=== PATIENT | male | born 1960 | race Caucasian/White ===

== ENCOUNTER 2019-03-22 08:14 | Outpatient (CLI) | payer OTHER ==
[~2019-03-22] VITALS: Ht 170.2 cm; Wt 113.4 kg
[2019-03-22] VITALS (13 sets, daily range): BP systolic 102–146; BP diastolic 51–78
[2019-03-22] MEDS ORDERED: LIDOCAINE WITH 8.4% SOD BICARB 3 ML DISP.SYRIN. ONE (08:34)
[2019-03-22 08:35] LABS: BASO % 1 % (0-3); EOS # 0.1 x10^3/uL (0.0-0.7); EOS % 1 % (0-3); HEMATOCRIT 45.5 % (39.0-53.0); HEMOGLOBIN 15.4 g/dL (13.0-17.5); LYMPH # 2.3 x10^3/uL (1.0-4.8); LYMPH % 33 % (24-48); MEAN CORPUSCULAR HEMOGLOBIN 29 pg (25-35); MEAN CORPUSCULAR HGB CONC 34 g/dL (31-37); MEAN CORPUSCULAR VOLUME 87 fL (79-100); MONO # 0.4 x10^3/uL (0.0-1.1); MONO % 6 % (0-9); NEUT % 60 % (31-73); PLATELET COUNT 161 x10^3/uL (140-400); RED BLOOD COUNT 5.23 x10^6/uL (4.30-5.70); WHITE BLOOD COUNT 6.8 x10^3/uL (4.0-11.0)
[2019-03-22] MEDS ORDERED: MIRT15TA PO (08:49)
[2019-03-22] MEDS ORDERED: NORT25CA PO (08:49)
[2019-03-22] MEDS ORDERED: INSU100V11 IJ (08:49)
[2019-03-22] MEDS ORDERED: LEVO25TA4 PO (08:49)
[2019-03-22] MEDS ORDERED: METF850T8 PO (08:49)
[2019-03-22] MEDS ORDERED: ATOR20TA58 PO (08:49)
[2019-03-22] MEDS ORDERED: BUSP10TA PO (08:49)
[2019-03-22] MEDS ORDERED: METO25TA4 PO (08:49)
[2019-03-22] MEDS ORDERED: CALC200T3 PO (08:49)
[2019-03-22] MEDS ORDERED: MELO7.5T29 PO (08:49)
[2019-03-22] MEDS ORDERED: TAMS0.4C97 PO (08:49)
[2019-03-22] MEDS ORDERED: DOCU-109 PO (08:49)
[2019-03-22] MEDS ORDERED: NALOXONE 0.4 MG/ML VIAL. ONE (08:53)
[2019-03-22] MEDS ORDERED: FLUMAZENIL 0.5 MG/5 ML VIAL. IV ONE (08:53)
[2019-03-22] MEDS ORDERED: fentaNYL PF VIAL 100 MCG/2 ML VIAL ONE (08:53)
[2019-03-22] MEDS ORDERED: MIDAZOLAM HCL/PF 2 MG/2 ML VIAL. ONE (08:53)
[2019-03-22 08:54] LABS: PROTHROMBIN TIME PATIENT 12.6 SEC (11.7-14.0)
[2019-03-22] MEDS ORDERED: MIDAZOLAM HCL/PF 2 MG/2 ML VIAL. IV ONE (09:00)
[2019-03-22] MEDS ORDERED: LIDOCAINE WITH 8.4% SOD BICARB 3 ML DISP.SYRIN. IJ ONE (09:00)
[2019-03-22] MEDS ORDERED: fentaNYL PF VIAL 100 MCG/2 ML VIAL IV ONE (09:00)
--- NOTE | 2019-03-22 11:50 | NUR ---
discharge notes; Pt was awake, VSS. Ate breakfast w/o any probelm. Bandaid site was clean and dry. Report was given to RN, Renee Mendosa at [facility]. Discharge instructions , incision care, diet, medicaations, activity, and S/S were also reviewed w/ pt. Pt verbalized understanding. Guard was at bedside through the procedure and recovery. Pt's belongings were w/ pt. Pt accomapied by the guard.
--- NOTE | 2019-03-22 15:15 | RAD ---
CT-guided biopsy, lytic lesion, right pubic bone 03/22/2019 Indication: Lytic lesion, right pubic bone concerning for malignancy Comparison study: CT of the abdomen and pelvis from outside institution, October 21, 2018. Discussion: The procedure, risks, and complications including but not limited to bleeding, pain, and infection were explained to the patient and verbal and written consent was obtained. The anterior inferior abdomen was prepped and draped using sterile barrier technique. All elements of maximal sterile barrier technique including the use of a cap, mask, sterile gown, sterile gloves, large sterile sheet, appropriate hand hygiene, and 2% chlorhexidine for cutaneous antisepsis (or acceptable alternative antiseptic per current guidelines) were followed for this procedure. 1% lidocaine was administered for local anesthesia. CT imaging redemonstrates a lytic lesion in the right pubic bone. Under intermittent CT guidance a trocar needle was advanced into the cortex of the right pubic bone. A second needle was advanced coaxially through the trocar and multiple biopsy samples obtained. These were placed in formalin. The needles were removed. Manual pressure was held. Repeat imaging demonstrates no significant hematoma or other complication. The patient tolerated the procedure well remaining hemodynamically stable throughout. [id number] consultation sedation time: 25 minutes. Sedation was carried out while the patient was continually monitored by a member of the Radiology nursing staff. Continual cardiopulmonary monitoring was carried out during the procedure. The patient tolerated the procedure well and there were no immediate complications. Impression: CT-guided biopsy, right pubic lytic osseous lesion
--- NOTE | 2019-03-24 18:06 | PATHOLOGY ---
[facility] Accession Number: [id number] . 01 Material submitted: . pelvis - PELVIS BONE BIOPSY . 01 Clinical history: . Pelvic bone lesion . 02 Diagnosis: Segments of bone, pelvic bone lesion, core biopsies: - METASTATIC POORLY DIFFERENTIATED ADENOCARCINOMA. SEE COMMENT. . (JPM:mml/ramon; 03/24/2019) [facility]/03/24/2019 . 02 Comment: Sections of the pelvic bone lesion core biopsy reveal segments of bone showing replacement of marrow by a malignant epithelial neoplasm. The malignant cells are arranged in small solid irregular nests within a reactive desmoplastic stroma. The malignant cells have modest amounts of pale eosinophilic cytoplasm, and possess enlarged, rounded to irregular moderately pleomorphic hyperchromatic nuclei containing prominent nucleoli. The tumor shows no obvious glandular or squamous differentiation. Mitotic figures are present. There is focal tumor necrosis. A panel of immunoperoxidase stains is obtained and yields the following results: . CK7: Tumor cells positive CK20: Tumor cells negative CDX2: Tumor cells negative TTF-1: Tumor cells positive PSA: Tumor cells negative P40: Tumor cells negative . . The morphologic and immunophenotypic findings are supportive of the diagnosis of a metastatic poorly differentiated adenocarcinoma and are consistent with lung origin. The case is also examined by Dr. Hart, who concurs with the diagnosis. (JPM:mml/ramon; 03/24/2019) . . Special stains performed all on A1: Cytokeratin 7, cytokeratin 20, CDX2, TTF-1, PSA, and p40. . 02 Electronically signed: . Ankit Grider MD, Pathologist NPI- [id number] . 01 Gross description: . The specimen is received in formalin, labeled "Cameron Paez, pelvic biopsy". Received are four needle cores of light ortiz bone ranging in length from 0.2 to 0.8 cm in length by 0.3 cm in diameter. The specimen is submitted entirely in cassette A1., following light decalcification. (CAA; 03/22/2019) QAC/QAC . 02 Pathologist provided ICD-10: C79.51 . 02 CPT . 887626, F30880, [id number] Specimen Comment: A courtesy copy of this report has been sent to Specimen Comment: [phone], . Specimen Comment: Report sent to / DR VALENCIA Specimen Comment: A duplicate report has been generated due to demographic updates. Performed at: 01 [facility] [address], [place] [id number] MD Marcus Deal MD Phone: [phone] Performed at: 02 [facility] [place] [address] [place], [place] [id number] MD Ankit Grider MD Phone: [phone]
== END 2019-03-22 11:30 ==
LOC: INTRAD 08:14
PROVIDERS: ATTEND Nurse Practitioner Family
DX: C79.51 Secondary malignant neoplasm of bone (principal); Z79.899 Other long term (current) drug therapy; Z79.01 Long term (current) use of anticoagulants; Z88.8 Allergy status to other drugs, medicaments and biological substances
CPT/HCPCS: 20220; 36415; 77012; 85025; 85610; 85730; 88307; 88341; 88342; J2250; J3010; 99152; 99153

== ENCOUNTER → 2019-06-15 | Outpatient (CLI) | payer OTHER ==
[2019-03-22 11:00] VITALS: BP 114/64
[~2019-06-15] MED LIST: ATOR20TA58 PO; BUSP10TA PO; CALC200T3 PO; DOCU-109 PO; INSU100V11 IJ; LEVO25TA4 PO; MELO7.5T29 PO; METF850T8 PO; METO25TA4 PO; MIRT15TA PO; NORT25CA PO; TAMS0.4C97 PO
--- NOTE | 2019-06-15 10:33 | KCIC ---
MRI of the thoracic spine without contrast 06/15/2019 CLINICAL HISTORY: Metastatic lung cancer. Increased activity seen involving a mid/lower thoracic vertebral body on a recent bone scan. MRI was recommended for further evaluation. TECHNIQUE: Unenhanced T1-weighted and T2-weighted sagittal and axial and inversion recovery sagittal images of the thoracic spine were obtained. Additionally T2-weighted sagittal images of the cervical, thoracic and lumbar spine were obtained for localization purposes. FINDINGS: Comparison is made to the patient's bone scan and CT scan of the chest, abdomen and pelvis dated 05/30/2019. Mild S-shaped curvature of the thoracolumbar spine is seen. Degenerative signal changes and loss of height are seen involving all of the disks of the thoracic spine. Degenerative signal changes are seen within the marrow surrounding these discs. No area of abnormal signal intensity is seen involving the thoracic spinal cord. There is no MRI evidence of metastatic disease involving the thoracic vertebra. Degenerative changes are seen involving the thoracic disc spaces consisting of mild generalized disc bulges and degenerative changes involving the facet joints. Superimposed focal disc protrusions are seen scattered throughout the mid and lower thoracic disc spaces. These measure 3 to 4 mm in AP diameter. These findings result in mild central spinal canal stenosis without evidence of cord impingement at T7-8. A left paracentral focal disc herniation is seen at T8-9 which measures 5 mm in AP diameter. This results in mild to moderate left-sided central spinal canal stenosis and deforms the left anterior surface of the thoracic spinal cord. A focal central disc protrusion is seen at T9-10 which measures 4 mm in AP diameter. This effaces the anterior CSF resulting in mild to moderate central spinal canal stenosis without evidence of cord impingement. No neural foraminal stenosis is seen. A right far lateral disc osteophyte complex is seen at T8-9 which measures 8 mm in transverse diameter. This appears to account for the area of increased activity seen on the patient's recent bone scan. IMPRESSION: 1. There is no MRI evidence of metastatic disease involving the thoracic vertebrae. 2. Degenerative changes are seen involving the thoracic spine. These findings result in mild central spinal canal stenosis at T7-8, mild to moderate left-sided central spinal canal stenosis at T8-9 and mild to moderate central spinal canal stenosis at T9-10. No neural foraminal stenosis is seen Electronically signed by: Yon Jones MD (06/15/2019 10:30 AM) [facility]
== END | disposition home or self-care (01) ==
LOC: EEVIPCON 08:45 → KCIC MRI 09:05
PROVIDERS: ATTEND Nurse Practitioner Family
DX: C79.51 Secondary malignant neoplasm of bone (principal); C34.90 Malignant neoplasm of unspecified part of unspecified bronchus or lung; M47.814 Spondylosis without myelopathy or radiculopathy, thoracic region; M48.04 Spinal stenosis, thoracic region; M25.78 Osteophyte, vertebrae; M51.24 Other intervertebral disc displacement, thoracic region
CPT/HCPCS: 72146

== ENCOUNTER → 2020-06-13 | Outpatient (CLI) | payer OTHER, MEDICAID ==
[2019-03-22 11:00] VITALS: BP 114/64
[~2020-06-13] MED LIST changes: +CONTRAST GIVEN. MC PRN; +IOHEXOL 240 MG/ML 50ML VIAL. PO ONE; +IOHEXOL 300 MG/ML 100ML VIAL. IV ONE
--- NOTE | 2020-06-13 10:08 | RAD ---
EXAM: CT Chest, Abdomen, and Pelvis with IV contrast INDICATION: Reason: METASTATIC ADINOCARCINOMA / Spl. Instructions: INJ 75ML OMNI 300, 30ML OMNI 240 PO / History: TECHNIQUE: Multi-detector row CT images were acquired from the thoracic inlet through the ischial tuberosities with the use of IV contrast. Sagittal and coronal images were acquired from the transaxial data. All CT scans performed at this facility utilize dose optimization techniques as appropriate to the exam, including the following: Automated exposure control and adjustment of the mA and/or KV according to patient size (this includes techniques or standardized protocols for targeted exams where dose is indication/reason for exam). IV CONTRAST: Administered ORAL CONTRAST: Administered COMPARISON: CT chest with IV contrast 05/30/2019 FINDINGS: CHEST: CARDIOVASCULAR: Multivessel coronary calcifications. Aortic valvular calcifications. Normal caliber and enhancement of thoracic aorta. No pericardial effusion. Normal caliber and filling of the central pulmonary arteries. MEDIASTINUM & TIGIST: No adenopathy or masses. LUNGS: Peripheral right upper lobe pleural-parenchymal scarring abutting the minor fissure is slightly decreased in size in the interval. PLEURAL SPACE: No pleural effusions or pneumothorax. OSSEOUS & SOFT TISSUE: Unremarkable ABDOMEN/PELVIS: LIVER: Unremarkable BILIARY SYSTEM: Gallbladder contains layering sludge. Bile ducts are not dilated. PANCREAS: Unremarkable SPLEEN: Unremarkable ADRENALS: Unremarkable KIDNEYS & URETERS: Unremarkable BLADDER: Diffuse circumferential wall thickening remains present, even more apparent than before. Perivesical soft tissue stranding is seen. REPRODUCTIVE ORGANS: Unremarkable GASTROINTESTINAL: No findings of bowel obstruction, perforation or acute inflammation. Scattered colonic diverticulosis. The appendix is normal. MESENTERY/PERITONEUM/RETROPERITONEUM: Unremarkable VASCULAR: Scattered arterial calcifications. No abdominal aortic aneurysm. LYMPH NODES: No adenopathy OSSEOUS & SOFT TISSUES: Stable sclerotic 1.6 cm lesion in the right iliac bone along the inferior sacroiliac joint. Osteolytic lesion in the anterior right hemipelvis involving the superior and inferior pubic rami and the right pubic symphysis remains present with greater expansion of the marrow space and more soft tissue stranding in the right hip adductor muscle group. (Compare axial image 89 of series 4 this examination with axial image 155 of series 7 on 11/15/2019).. IMPRESSION: Nonspecific increased bladder wall thickening and perivesical soft tissue stranding as well as soft tissue stranding in the right hip adductor muscle group in the setting of osteolytic metastatic disease. These could reflect posttreatment changes or acute superimposed inflammatory process such as cystitis. Slow tumor progression however is difficult to exclude and additional attention on follow-up is recommended. Electronically signed by: Misty Ordoñez MD (06/13/2020 10:05 AM) [id number]
--- NOTE | 2020-06-13 17:11 | RAD ---
Labeled scan INDICATION: Lung cancer with bone metastases. COMPARISON: Whole-body bone scan of 05/30/2019, abdomen and pelvis CT of 06/13/2020 and 05/30/2019. TECHNIQUE: Approximately 3.5 hours after IV administration of 25 mCi technetium labeled MDP radiopharmaceutical, anterior and posterior imaging of the skeletal system was performed with a gamma camera. FINDINGS: There is persistent uptake over the right superior and inferior pubic rami corresponding with the osteolytic lesions evident on CT. In addition, there is ovoid soft tissue uptake more superiorly in the pelvis newly present anteriorly, correlating with a small fat-containing umbilical hernia on CT. Otherwise no abnormal radiopharmaceutical uptake suspicious for metastatic disease. IMPRESSION: Persistent uptake in the right hemipelvis correlating with the osteolytic lesions seen on CT and consistent with osteolytic metastatic disease. No findings suspicious for disease progression. Electronically signed by: Misty Ordoñez MD (06/13/2020 5:09 PM) [id number]
== END | disposition home or self-care (01) ==
LOC: EEVIPCON 08:30 → NM 08:57
PROVIDERS: ATTEND Internal Medicine Hematology & Oncology
DX: C79.9 Secondary malignant neoplasm of unspecified site (principal); I25.10 Atherosclerotic heart disease of native coronary artery without angina pectoris; I35.8 Other nonrheumatic aortic valve disorders; J98.4 Other disorders of lung; M89.9 Disorder of bone, unspecified
CPT/HCPCS: 71260; 74177; 78306; A9503; Q9966; Q9967